=== PATIENT | female | born 1985 | race African-American/Black ===

== ENCOUNTER 2019-03-15 09:11 | Emergency (ER) | payer MEDICAID ==
[~2019-03-15] VITALS: Ht 162.6 cm; Wt 100.0 kg
[2019-03-15 09:43] VITALS: BP 159/84
[2019-03-15] MEDS ORDERED: KETOROLAC 60MG/2ML VIAL IM STA (11:48)
== END 2019-03-15 13:23 | disposition home or self-care (01) ==
LOC: ER 09:11
DX: S93.491A Sprain of other ligament of right ankle, initial encounter (principal); M25.561 Pain in right knee; I10 Essential (primary) hypertension; F17.200 Nicotine dependence, unspecified, uncomplicated; W18.39XA Other fall on same level, initial encounter; Y93.89 Activity, other specified; Y92.89 Other specified places as the place of occurrence of the external cause; Y99.8 Other external cause status; Z98.890 Other specified postprocedural states
CPT/HCPCS: 73562; 73610; 81025; 96372; 99283; J1885